=== PATIENT | female | born 1985 | race Caucasian/White ===

== ENCOUNTER 2022-04-07 14:32 | Emergency (ER) | payer MEDICAID ==
[2022-04-07] MEDS ORDERED: Pepcid 20 MG VIAL IV ONE ×2 (14:38→14:41)
[2022-04-07] MEDS ORDERED: DUONEB 0.5-3 MG/3 ml Neb IH ONE ×2 (14:38→14:45)
[2022-04-07] MEDS ORDERED: solu-MEDROL 125 MG, Sterile H2O 10 ml 2 ML IV ONE ×2 (14:38)
[2022-04-07] MEDS ORDERED: BENADRYL 50 MG/ML IV ONE (14:38)
[2022-04-07] MEDS ORDERED: Racepinephrine INH Solution 2.25% IH ONE ×2 (14:39→14:45)
[2022-04-07] MEDS ORDERED: solu-MEDROL ONE (14:41)
[2022-04-07] MEDS ORDERED: BENADRYL 50 MG/ML ONE (14:41)
[2022-04-07] MEDS ORDERED: Sterile H2O 10 ml IJ ONE (14:41)
[2022-04-07] MEDS ORDERED: Sodium Chloride 3 ML UD NEBULES IH ONE (14:45)
[2022-04-07 14:51] VITALS: BP 135/81
[2022-04-07 16:20] VITALS: PULSE 72; O2SAT 99
--- NOTE | 2022-04-07 16:41 | ERPHSYRPT ---
- History of Present Illness Time Seen by Provider: 04/07/22 14:35 Source: patient Exam Limitations: no limitations Patient Subjective Stated Complaint: Allergic reaction Triage Nursing Assessment: Patient brought back to ED per w/c and transferred self to bed. Patient A+O x3. Patient's skin flushed, warm and dry. Patient states prior to coming into ED she was smoking a blunt when she inhaled a piece of the blunt then spit it back out. Patient states she instantly became SOB and unable to swallow. Lungs noted to be diminished on right side with wheezing and stridor on right. Patient denies pain or discomfort. Throat and lips noted to be swollen. Physician History: 37-year-old female with history of marijuana use, smoking blunt and accidentally inhaled a piece of it which she spit it back out butts since then having constant coughing, choking sensation and stridors with some chest tightness. This happened almost an hour prior to arrival. Does report remote history of asthma. No chest pain otherwise. No fever or chills reported. Timing/Duration: hour(s) (1), constant, sudden, worse Severity of Dyspnea-Max: moderate Severity of Dyspnea-Current: moderate Possible Cause: allergen exposure, smoke exposure Modifying Factors: Improves With: nothing Associated Symptoms: cough, tightness Allergies/Adverse Reactions: No Known Drug Allergies Allergy (Unverified 04/07/22 14:34) Hx Influenza Vaccination/Date Given: No Hx Pneumococcal Vaccination/Date Given: No Travel Risk - International Travel Have you traveled outside of the country in past 3 weeks: No - Coronavirus Screening Are you exhibiting any of the following symptoms?: No Close contact with a COVID-19 positive Pt in past 14-21 Days: No - Vaccine Status Have you recieved a Covid-19 vaccination: No - Review of Systems Constitutional: No Symptoms Eyes: No Symptoms Ears, Nose, & Throat: No Symptoms Respiratory: Cough, Dyspnea, Stridor, Wheezing Cardiac: No Symptoms Abdominal/Gastrointestinal: No Symptoms Genitourinary Symptoms: No Symptoms Musculoskeletal: No Symptoms Skin: No Symptoms Neurological: No Symptoms Psychological: Anxiety Endocrine: No Symptoms Hematologic/Lymphatic: No Symptoms Immunological/Allergic: No Symptoms - Past Medical History Pertinent Past Medical History: No Neurological History: No Pertinent History ENT History: No Pertinent History Cardiac History: No Pertinent History Respiratory History: No Pertinent History Endocrine Medical History: No Pertinent History Musculoskeletal History: No Pertinent History GI Medical History: No Pertinent History History: No Pertinent History Psycho-Social History: No Pertinent History Female Reproductive Disorders: No Pertinent History - Past Surgical History Past Surgical History: Yes Neuro Surgical History: No Pertinent History Cardiac: No Pertinent History Respiratory: No Pertinent History Gastrointestinal: No Pertinent History Genitourinary: No Pertinent History Musculoskeletal: No Pertinent History Female Surgical History: Tubal Ligation - Social History Smoking Status: Never smoker Exposure to second hand smoke: Yes Drug Use: marijuana Patient Lives Alone: No - Female History Hx Last Menstrual Period: 5 days ago Hx Now: No - Nursing Vital Signs Nursing Vital Signs: Initial Vital Signs Temperature 98.5 F 04/07/22 14:37 Pulse Rate 106 H 04/07/22 14:37 Respiratory Rate 26 H 04/07/22 14:37 Blood Pressure 135/81 04/07/22 14:37 O2 Sat by Pulse Oximetry 97 04/07/22 14:37 Pain Scale Pain Intensity 0 - Physical Exam General Appearance: no apparent distress Eye Exam: PERRL/EOMI Ears, Nose, Throat Exam: hearing grossly normal, pharyngeal erythema Neck Exam: normal inspection, non-tender, supple, full range of motion Respiratory Exam: wheezing, stridor, No chest tenderness Cardiovascular/Chest Exam: normal heart sounds, regular rate/rhythm Abdominal/Gastrointestinal Exam: soft, No tenderness Extremity Exam: non-tender, normal range of motion Neurologic Exam: alert, oriented x 3, cooperative Skin Exam: normal color SpO2 Interpretation: normal SpO2: 99 O2 Delivery: Room Air Ordered Tests: Active Orders 24 hr Category Date Time Status IV Insertion STAT Care 04/07/22 14:38 Active Respiratory Therapy Assessment DAILY RT 04/07/22 14:59 Active Medication Summary Discontinued Medications Generic Name Dose Route Start Last Admin Trade Name Freq PRN Reason Stop Dose Admin Albuterol/Ipratropium 3 ml 04/07/22 14:38 04/07/22 14:55 Ipratropium/Albuterol Sulfate 3 Ml Ampul.Neb IH 04/07/22 14:39 3 ml STAT ONE Administration Albuterol/Ipratropium Confirm 04/07/22 14:45 Ipratropium/Albuterol Sulfate 3 Ml Ampul.Neb Administered 04/07/22 14:46 Dose 3 ml IH .STK-MED ONE Methylprednisolone Sodium 0 mg 04/07/22 14:38 04/07/22 14:46 Succinate 125 mg/ Sterile IV 04/07/22 14:39 125 mg Water 2 ml STAT ONE Administration Diphenhydramine HCl 25 mg 04/07/22 14:38 04/07/22 14:46 Diphenhydramine Hcl 50 Mg/Ml Vial IV 04/07/22 14:39 25 mg STAT ONE Administration Diphenhydramine HCl Confirm 04/07/22 14:41 Diphenhydramine Hcl 50 Mg/Ml Vial Administered 04/07/22 14:42 Dose 50 mg .ROUTE .STK-MED ONE Epinephrine 0.5 ml 04/07/22 14:39 04/07/22 14:46 Racepinephrine Inh Farrah 0.5 Ml Neb IH 04/07/22 14:40 0.5 ml STAT ONE Administration Epinephrine Confirm 04/07/22 14:45 Racepinephrine Inh Farrah 0.5 Ml Neb Administered 04/07/22 14:46 Dose 0.5 ml IH .STK-MED ONE Famotidine 20 mg 04/07/22 14:38 04/07/22 14:46 Famotidine 20 Mg/1 Vial IV 04/07/22 14:39 20 mg STAT ONE Administration Famotidine Confirm 04/07/22 14:41 Famotidine 20 Mg/1 Vial Administered 04/07/22 14:42 Dose 20 mg IV .STK-MED ONE Methylprednisolone Sodium Succinate Confirm 04/07/22 14:41 Methylprednis Sod Succ 125 Mg/2 Ml Vial Administered 04/07/22 14:42 Dose 125 mg .ROUTE .STK-MED ONE Sodium Chloride Confirm 04/07/22 14:45 Sodium Cl For Inhalation 3 Ml Ud Nebule Administered 04/07/22 14:46 Dose 3 ml IH .STK-MED ONE Sterile Water Confirm 04/07/22 14:41 Water For Injection,Sterile 10 Ml Vial Administered 04/07/22 14:42 Dose 10 ml IJ .STK-MED ONE - Progress Progress: improved Air Movement: good Progress Note: 04/07/22 16:38 She is given racemic epi and DuoNeb along with Solu-Medrol, Benadryl and Pepcid, on reevaluation she is feeling better and back to normal. No more stridor or difficulty breathing. No signs of angioedema. We will continue with these meds to go home and will also give EpiPen to use as needed. Recommended not smoking marijuana/tobacco. Discussed signs symptoms of worsening needing return to ER which she seems understanding. 04/07/22 16:40 Blood Culture(s) Obtained: No Antibiotics given: No Counseled pt/family regarding: diagnosis, need for follow-up - Departure Departure Disposition: Home Clinical Impression: Allergic reaction Condition: Stable Critical Care Time: No Referrals: DOCTOR,NO FAMILY [Primary Care Provider] - Follow up/PCP as directed DAVID MADRIGAL MD [ACTIVE STAFF] - Follow Up with PCP/3 days (3 days for reevaluation) Instructions: Anaphylaxis (DC) Additional Instructions: Do not smoke cigarettes/marijuana. Use EpiPen as needed. Follow-up with primary care for reevaluation. Prescriptions: Diphenhydramine HCl 25 mg [Benadryl 25 mg Capsule] 25 mg PO Q4H PRN PRN #20 cap PRN Reason: Allergies Albuterol Sulfate [Albuterol Sulfate Hfa] 8.5 gm IH Q6H PRN 7 Days #1 inh PRN Reason: Cough Prednisone 20 mg [Deltasone 20 mg] 60 mg PO DAILY 5 Days #15 tablet Famotidine 20 mg [Pepcid 20 MG] 20 mg PO BID #10 tablet EPINEPHrine [Symjepi] 0.3 mg IJ DIRECTIONS UNKNOWN PRN 1 Days #1 unit PRN Reason: Allergies
== END 2022-04-07 16:58 | disposition home or self-care (01) ==
LOC: ED 14:32
DX: T40.711A Poisoning by cannabis, accidental (unintentional), initial encounter (principal); R06.02 Shortness of breath; R05.1 Acute cough; R09.89 Other specified symptoms and signs involving the circulatory and respiratory systems; Z28.310 Unvaccinated for COVID-19; Z79.52 Long term (current) use of systemic steroids
CPT/HCPCS: 36000; 94640; 96374; 96375; 99284; J1200; J2930; A9270-GY

== ENCOUNTER 2023-07-07 19:23 | Emergency (ER) | payer MEDICAID, OTHER ==
[2023-07-07 19:39] VITALS: RESP 18; TEMP 97.3; O2SAT 100
[2023-07-07] MEDS ORDERED: DUONEB 0.5-3 MG/3 ml Neb IH ONE ×2 (19:50→20:03)
--- NOTE | 2023-07-07 19:54 | ERPHSYRPT ---
- History of Present Illness Time Seen by Provider: 07/07/23 19:52 Source: patient Exam Limitations: no limitations Patient Subjective Stated Complaint: pt states swelling to left jaw. pt states that she has had a cough and not been feeling well since last sunday. pt sta gonzalo son was diagnosed with flu a Triage Nursing Assessment: pt ambulated into the er; pt is axo x4; c/o swelling to left jaw; swelling and warmth present to left jaw; dry hacking cough present; clear lung sounds in all lobes; no respiratory distress present; pt is able to speak in full sentences with no distress present; hypertension Physician History: Patient is 38-year-old female came to the emergency room with complaining of left-sided jaw pain swelling on the left side of the jaw and throat as well as sore throat generalized malaise body ache for last 2 to 3 days. Patient son has influenza A. Patient grandma is also have a bronchitis. Patient denies any fever Timing/Duration: day(s) Cough Quality/Degree: dry cough Associated Symptoms: cough Allergies/Adverse Reactions: No Known Drug Allergies Allergy (Verified 07/07/23 19:26) Hx Tetanus, Diphtheria Vaccination/Date Given: No Hx Influenza Vaccination/Date Given: No Hx Pneumococcal Vaccination/Date Given: No Travel Risk - International Travel Have you traveled outside of the country in past 3 weeks: No - Coronavirus Screening Are you exhibiting any of the following symptoms?: Yes Symptoms: Cough: New Onset Close contact with a COVID-19 positive Pt in past 14-21 Days: No - Vaccine Status Have you recieved a Covid-19 vaccination: No - Review of Systems Constitutional: No Fever, No Chills Eyes: No Symptoms Ears, Nose, & Throat: Throat Pain Respiratory: Cough, No Dyspnea Cardiac: No Chest Pain, No Edema, No Syncope Abdominal/Gastrointestinal: No Abdominal Pain, No Nausea, No Vomiting, No Diarrhea Genitourinary Symptoms: No Dysuria Musculoskeletal: No Back Pain, No Neck Pain Skin: No Rash Neurological: No Dizziness, No Focal Weakness, No Sensory Changes Psychological: No Symptoms Endocrine: No Symptoms All Other Systems: Reviewed and Negative - Past Medical History Pertinent Past Medical History: Yes Neurological History: No Pertinent History ENT History: No Pertinent History Cardiac History: No Pertinent History Respiratory History: No Pertinent History Endocrine Medical History: No Pertinent History Musculoskeletal History: No Pertinent History GI Medical History: No Pertinent History History: No Pertinent History Psycho-Social History: Depression Female Reproductive Disorders: No Pertinent History - Past Surgical History Past Surgical History: Yes Neuro Surgical History: No Pertinent History Cardiac: No Pertinent History Respiratory: No Pertinent History Gastrointestinal: No Pertinent History Genitourinary: No Pertinent History Musculoskeletal: No Pertinent History Female Surgical History: Tubal Ligation - Social History Smoking Status: Never smoker Exposure to second hand smoke: Yes Drug Use: marijuana Patient Lives Alone: No - Female History Hx Now: No - Nursing Vital Signs Nursing Vital Signs: Initial Vital Signs Temperature 97.3 F 07/07/23 19:30 Pulse Rate 86 07/07/23 19:30 Respiratory Rate 18 07/07/23 19:30 Blood Pressure 119/72 07/07/23 19:30 O2 Sat by Pulse Oximetry 100 07/07/23 19:30 Pain Scale Pain Intensity 5 - Physical Exam General Appearance: no apparent distress, alert Eye Exam: PERRL/EOMI, eyes nml inspection Ears, Nose, Throat Exam: normal ENT inspection, TMs normal, pharynx normal, moist mucous membranes, pharyngeal erythema Neck Exam: normal inspection, non-tender, supple, full range of motion Respiratory Exam: normal breath sounds, lungs clear, No respiratory distress Cardiovascular Exam: regular rate/rhythm, normal heart sounds Gastrointestinal/Abdomen Exam: soft, No tenderness Back Exam: normal inspection, No CVA tenderness, No vertebral tenderness Extremity Exam: normal inspection, normal range of motion Neurologic Exam: alert, oriented x 3, cooperative, normal mood/affect, sensation nml, No motor deficits Skin Exam: normal color, warm, dry, No rash Lymphatic Exam: No adenopathy SpO2: 100 - Course Nursing assessment & vital signs reviewed: Yes Ordered Tests: Active Orders 24 hr Category Date Time Status MONO SCREEN Stat Lab 07/07/23 20:00 Completed Respiratory Therapy Assessment DAILY RT 07/07/23 20:04 Active Medication Summary Discontinued Medications Generic Name Dose Route Start Last Admin Trade Name Freq PRN Reason Stop Dose Admin Albuterol/Ipratropium 3 ml 07/07/23 19:50 07/07/23 20:05 Ipratropium/Albuterol Sulfate 3 Ml Ampul.Neb IH 07/07/23 19:51 3 ml STAT ONE Administration Albuterol/Ipratropium Confirm 07/07/23 20:03 Ipratropium/Albuterol Sulfate 3 Ml Ampul.Neb Administered 07/07/23 20:04 Dose 3 ml IH .STK-MED ONE Lab/Rad Data: Laboratory Results 07/07/23 07/07/23 07/07/23 Range/Units 20:00 20:00 20:00 Monoscreen NEGATIVE (NEGATIVE) Influenza Type A Ag POSITIVE (NEGATIVE) Influenza Type B Ag NEGATIVE (NEGATIVE) RSV (PCR) NEGATIVE (NEGATIVE) SARS-CoV-2 (PCR) NEGATIVE (NEGATIVE) Group A Strep Antibody NOT DETECTED (NEGATIVE) - Progress Progress: improved Counseled pt/family regarding: lab results, diagnosis, need for follow-up Medical Desision Making - Diagnostic Testing Diagnostic test were ordered, analyzed, and reviewed by me: Yes - Risk of complications Low Risk: Low risk of morbidity from additional dx testing or treatment - Departure Departure Disposition: Home Clinical Impression: Influenza A Condition: Stable Critical Care Time: No Referrals: DAVID MADRIGAL MD [Primary Care Provider] - Follow Up with PCP/3 days Instructions: Flu, Adult (DC) Additional Instructions: Discharge/Care Plan KEVIN REZA was seen on 07/07/23 in the Emergency Room. The patient was counseled regarding Diagnosis,Lab results, Imaging studies, need for follow up and when to return to the Emergency Room. Prescriptions given: Discharge Note I have spoken with the patient and/or caregivers. I have explained the patient's condition, diagnosis and treatment plan based on the information available to me at this time. I have answered the patient's and/or caregiver's questions and addressed any concerns. The patient and/or caregivers have as good understanding of the patient's diagnosis, condition and treatment plan as can be expected at this point. The vital signs have been stable. The patient's condition is stable and appropriate for discharge from the emergency department. The patient will pursue further outpatient evaluation with the primary care physician or other designated or consulting physician as outlined in the discharge instructions. The patient and/or caregivers are agreeable to this plan of care and follow-up instructions have been explained in detail. The patient and/or caregivers have received these instruction. The patient/and or caregivers are aware that any significant change in condition or worsening of symptoms should prompt an immediate return to this or the closest emergency department or call 911. KEVIN REZA was seen on 07/07/23 n the Emergency Room. At that time you were treated for an emergent condition, during your visit Laboratory, Radiology and/or other procedures may have been ordered. It is very important that you follow-up with your Primary Care Physician DAVID MADRIGAL within the next 24-48 hours to review your Emergency Room visit and the final results of testing that was ordered. Some test results such as Urine Cultures, Blood Cultures, and other cultures if ordered will not be finalized for 24-48 hours. If you do not have a Primary Care Provider please call the medical records department at [phone] ext [phone] to obtain a copy of your results or you may sign into our patient portal to obtain these results by visiting us @ [email or web address] and completing the following steps: 1. Click on the Patient Portal link 2. Click the Patient Self Enrollment Link to complete the enrollment form and entering your 3. Once the enrollment form is completed you will receive an email with a temporary ID and password at the email address you provided. 4. Next choose a user name and password. Your user name must be at least 4 characters long and your password must be at least 4 characters long. 5. Choose a security question from the list and provide your answer to the question. If you already have signed into the Health Portal you may access your Health Care Information 26/02 by the following steps: 1. Login to our website @ [email or web address] 2. Enter your original user name and password. FAQS The [facility] Health Portal is an online tool that contains your Lab Results, Radiology Reports, Visit History, Discharge Instructions and Health Summary Lab and Radiology Results will not be available for 72 hours on the portal. The Portal is a secure site, passwords are encryted and URLs are re-written so they cannot be copied and pasted. You and authorized family members are the only ones who can access your Portal. Also there is a timeout feature that protects your information if you leave the Portal page open. If you have technical difficulty please use the Contact Us link on the page this will allow you to submit any questions you have regarding the Portal or you may contact the Medical Record Department at [phone] ext [phone]. Prescriptions: Oseltamivir 75 mg [Tamiflu 75MG Capsule] 75 mg PO BID #10 cap
[2023-07-07 20:35] VITALS: BP 122/76; PULSE 79
[2023-07-07 20:48] LABS: INFLUENZA B NEGATIVE (NEGATIVE); RESPIRATORY SYNCTIAL VIRUS NEGATIVE (NEGATIVE); SARS-CoV-2 Xpert Express NEGATIVE (NEGATIVE)
[2023-07-07 20:53] LABS: INFLUENZA A POSITIVE (NEGATIVE)
[2023-07-07] MEDS ORDERED: Tamiflu 75MG Capsule PO ONE ×2 (20:53→20:55)
== END 2023-07-07 21:03 | disposition home or self-care (01) ==
LOC: ED 19:23
DX: J10.1 Influenza due to other identified influenza virus with other respiratory manifestations (principal); R68.84 Jaw pain; M79.10 Myalgia, unspecified site; R53.83 Other fatigue; Z28.310 Unvaccinated for COVID-19
CPT/HCPCS: 0241U; 36415; 86308; 87651; 94640; 99283; A9270-GY